=== PATIENT | male | born 1995 | race Two or more races ===

== ENCOUNTER 2025-05-02 11:59 | Emergency (ER) | payer OTHER ==
[~2025-05-02] VITALS: Ht 175.3 cm; Wt 68.0 kg
[2025-05-02 14:02] VITALS: BP 147/110; PULSE 75; RESP 17; TEMP 98; O2SAT 97
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
== END 2025-05-02 15:15 | disposition home or self-care (01) ==
LOC: ER 11:59
DX: S16.1XXA Strain of muscle, fascia and tendon at neck level, initial encounter (principal); V43.52XA Car driver injured in collision with other type car in traffic accident, initial encounter; Y93.89 Activity, other specified; Y92.488 Other paved roadways as the place of occurrence of the external cause; Y99.8 Other external cause status
CPT/HCPCS: 72040; 72070